=== PATIENT | female | born 1945 | race Caucasian/White ===

== ENCOUNTER → 2017-02-05 16:24 | Outpatient (CLI) | payer MEDICARE ==
[2015-01-10 09:01] VITALS: BMI 29.6
[~2017-02-05 16:24] MED LIST: ASPIRIN EC81 M1 PO; DIOVAN160 MG PO; EVISTA60 MG PO; GLUCOPHAGE500 MG PO; HYDROCODONE-APA1 TAB PO; KEFLEX250 MG PO; LIPITOR40 MG PO; NORCO 10/325 TA1 TA1 PO; OS-CAL500 MG PO; TYLENOL325 MG PO; VITAMIN D31000 UNI2 PO; ZOCOR20 MG PO; ZOFRAN4 MG PO
== END | disposition home or self-care (01) ==
LOC: D.MAMMO 08:30
DX: Z85.3 Personal history of malignant neoplasm of breast (principal); Z12.31 Encounter for screening mammogram for malignant neoplasm of breast

== ENCOUNTER → 2018-08-25 18:48 | Outpatient (CLI) | payer MEDICARE ==
[2015-01-10 09:01] VITALS: BMI 29.6
== END | disposition home or self-care (01) ==
LOC: D.MAMMO 09:30
DX: Z85.3 Personal history of malignant neoplasm of breast (principal)

== ENCOUNTER 2019-08-04 09:00 | Outpatient (CLI) | payer MEDICARE ==
[2015-01-10 09:01] VITALS: BMI 29.6
== END 2019-08-04 10:00 | disposition home or self-care (01) ==
LOC: D.MAMMO 09:00
PROVIDERS: ATTEND Family Medicine
DX: Z12.31 Encounter for screening mammogram for malignant neoplasm of breast (principal)